=== PATIENT | male | born 1945 | race Two or more races ===

== ENCOUNTER 2020-04-02 14:46 | Inpatient (IN) | payer MEDICARE ==
[~2020-04-02] VITALS: Ht 157.5 cm; Wt 50.3 kg
[2020-04-02] VITALS (8 sets, daily range): BP systolic 136–147; BP diastolic 59–71
[2020-04-02] MEDS ORDERED: IV NS 0.9% 500 ML BAG IV ONE (15:00)
[2020-04-02] MEDS ORDERED: TRAZ-257 PO (15:04)
[2020-04-02] MEDS ORDERED: LOSA50TA39 MT (15:04)
[2020-04-02] MEDS ORDERED: ATOR80TA MT (15:04)
--- NOTE | 2020-04-02 15:11 | NUR ---
BIBPA FROM SNF TO ER BED 5. AAOX2. NOT IN RESP DISTRESS, BREATHING EVEN AND UNLABORED. PT WAS SENT BY PMD FOR ABNORMAL HAG RESULT, REPORTED AT 5.6. MD WAS AT THE BEDSIDE FOR EVAL. PT IS NOTED WITH AN OPEN TRACH STOMA. IV LINE ESTABLSHIED ON RFA 18G. ARRIVED WITH A LINE ON L FA 24G.
[2020-04-02 15:45] LABS: BASOPHILS # (AUTO) 0.1 /CMM (0.0-0.2); BASOPHILS % (AUTO) 0.6 % (0.0-2.0); EOSINOPHILS % (AUTO) 1.3 % (0.0-6.0); HEMATOCRIT 21 % (39-51); LYMPHOCYTES # (AUTO) 1.2 /CMM (0.8-4.8); LYMPHOCYTES % (AUTO) 14.3 % (20.0-44.0); MEAN CORPUSCULAR HGB CONC 29 g/dl (31.0-36.0); MEAN CORPUSCULAR VOLUME 80 fL (80-96); MONOCYTES # (AUTO) 0.5 /CMM (0.1-1.30); MONOCYTES % (AUTO) 6.2 % (2.0-12.0); NEUTROPHILS # (AUTO) 6.8 /CMM (1.8-8.9); NEUTROPHILS % (AUTO) 77.6 % (43.0-81.0); PLATELET COUNT (AUTO) 596 /CMM (150-450); RED BLOOD CELL COUNT(AUTO) 2.62 MIL/uL (4.5-6.0); WHITE BLOOD COUNT (AUTO) 8.7 K/uL (4.3-11.0)
[2020-04-02 15:54] LABS: CALCIUM, SERUM 9.1 mg/dL (8.5-10.1); CARBON DIOXIDE 21 mmol/L (21-32); CHLORIDE 106 mmol/L (98-107); CREATININE 2.4 mg/dL (0.6-1.3); GLUCOSE 87 mg/dL (74-106); HEMOGLOBIN 6.1 g/dL (13.5-17.5); SODIUM SERUM 138 mmol/L (136-145); UREA NITROGEN, BLOOD 29 mg/dL (7-18)
[2020-04-02 15:59] LABS: ALANINE AMINOTRANSFERASE 13 U/L (12-78); ALBUMIN 2.1 g/dL (3.4-5.0); ALKALINE PHOSPHATASE 109 U/L (46-116); ASPARTATE AMINOTRANSFERASE 16 U/L (15-37); BILIRUBIN,TOTAL 0.1 mg/dL (0.2-1.0); LIPASE 67 U/L (73-393); TOTAL PROTEIN, SERUM 7.4 g/dL (6.4-8.2)
--- NOTE | 2020-04-02 16:42 | NUR ---
REPORT GIVEN TO AIDAN CHUN FOR FARRAH
[2020-04-02 16:44] LABS: LYMPHOCYTES % (MANUAL) 15 % (16-48); NEUTROPHILS % (MANUAL) 77 (42-76)
[2020-04-02 16:45] LABS: EOSINOPHILS % (MANUAL) 1 % (0-4); MONOCYTES % (MANUAL) 7 % (0-11.0)
--- NOTE | 2020-04-02 17:00 | NUR ---
LAB AT BEDSIDE FOR BLOOD DRAW FOR 2ND TYPE AND SCREEN. COVID SWAB DONE WELL.
--- NOTE | 2020-04-02 17:28 | NUR ---
PT TRANSPORTED TO UNIT ON [facility] WITH EMT AND RN AT BEDSIDE USING ACLS PROTOCOL. NAD DURING TRANSPORT.
--- NOTE | 2020-04-02 17:48 | NUR ---
patient received from er jairo mcfadden notified about admission and ok to transfuse prbc ordered from er.primary nurse aware.
--- NOTE | 2020-04-02 18:02 | NUR ---
CONSENT OBTAINED FROM [facility] TO GIVE BLOOD .
[2020-04-02] MEDS ORDERED: ACETAMINOPHEN 325 MG TABLET PO PRN (18:30)
[2020-04-02] MEDS ORDERED: ONDANSETRON HCL/PF 4 MG/2 ML VIAL IVP PRN (18:30)
[2020-04-02] MEDS ORDERED: MAGNESIUM HYDROXIDE 30 ML UDC PO PRN (18:30)
[2020-04-02] MEDS ORDERED: HYDROCODONE/APAP 5/325MG 1 EACH TABLET PO PRN (18:30)
[2020-04-02] MEDS ORDERED: Z GUARD REMEDY 2 OZ OINT TP PRN (18:30)
[2020-04-02] MEDS ORDERED: ZOLPIDEM TARTRATE 5 MG TABLET PO PRN (18:30)
--- NOTE | 2020-04-02 19:05 | NUR ---
RN OPENING NOTES RECEIVED PT ON BED ASLEEP EASY TO AROUSE ON RA TOLERATING WELL WITH SPO2 98% NO SIGN AND SYMPTOMS OF DISTRESS, OLD TRACH STOMA STILL OPEN NOTED, CHARGE NURSE MADE AWARE, PT ON TELE MONITOR WITH READING SINUS RHYTHM 80'S, WITH IV #18 ON RHAND WITH ONGOING 1 UNIT PRBC INFUSING WELL NO SIGN AND SYMPTOMS OF ANY TRANSFUSION REACTION, ON DROPLET ISOLATION FOR R/O COVID SAFETY MEASURE MAINTAINED WILL CONT TO MONITOR
--- NOTE | 2020-04-02 19:17 | NUR ---
PROCESS CONTROL MANAGER NOTE: PATIENT ADMITTED FROM ER FOR ANEMIA. ALERT, NON-VERBAL BUT ABLE TO FOLLOW COMMANDS. PATIENT IS SATING 99% ON RA. NO SIGNS OF RESPIRATORY DISTRESS NOTED, NO SIGNS OF ACUTE DISTRESS NOTED. PATIENT HAS OLD TRACH STOMA THAT HAS NOT BEEN CLOSED YET. DNR, COMFORT MEASURES ONLY, NKA PER ER. SR IN THE 80S ON TELE MONITOR. SKIN INTACT. #18 ON RFA AND #24 ON LFA, FLUSHING WELL, C/D/I, NO SIGNS OF COMPLICATIONS NOTED. 1 UNIT PRBC HUNG D/T HGB 6.1, WILL CARRY OVER TO FOLLOWING SHIFT, NO SIGNS OF COMPLICATIONS/ REACTIONS NOTED. VSS. PER ER, MRSA AND COVID TESTING SWAB DONE. ISOLATION PRECAUTIONS FOR R/O COVID. ADMITTING ASSESSMENTS COMPLETE. ENDORSED TO MIKO RN TO F/U WITH DIET, ALLERGIES AND PICTURES IF NEEDED AND TO CONTINUE PLAN OF CARE. SAFETY MEASURES IMPLEMENTED, BED IN LOWEST POSITION, LOCKED, SIDE RAILS UP X2, CALL LIGHT WITHIN REACH.
[2020-04-02] MEDS: ATORVASTATIN 40 MG TABLET PO SCH (21:25)
[2020-04-02] MEDS: TRAZODONE 50 MG TABLET PO SCH (21:25)
--- NOTE | 2020-04-02 21:31 | NUR ---
RN TRANSFUSION NOTES 1 UNIT PRBC TRANSFUSED WITH LATEST V/S TEMP 98.2 RR 20 HR 84 BP 146/66 SPO2 100% NO SIGN AND SYMPTOMS OF ANY TRANSFUSION REACTION, PT IS AWAKE MOUTHING HIS WORDS NO COMPLAINT OF ANY PAIN WILL CONT TO MONITOR
[2020-04-02] MEDS: IV NS 0.9% 1,000 ML IV PRN (21:34)
[2020-04-03] VITALS: BP 152/63
[2020-04-03 00:40] LABS: HEMOGLOBIN 7.8 g/dL (13.5-17.5)
[2020-04-03 04:00] VITALS: BP 150/68
[2020-04-03 06:27] LABS: BASOPHILS # (AUTO) 0.1 /CMM (0.0-0.2); EOSINOPHILS % (AUTO) 1.6 % (0.0-6.0); HEMATOCRIT 26 % (39-51); HEMOGLOBIN 7.8 g/dL (13.5-17.5); LYMPHOCYTES # (AUTO) 1.3 /CMM (0.8-4.8); LYMPHOCYTES % (AUTO) 11.7 % (20.0-44.0); MEAN CORPUSCULAR HGB CONC 30 g/dl (31.0-36.0); MEAN CORPUSCULAR VOLUME 82 fL (80-96); MONOCYTES # (AUTO) 0.5 /CMM (0.1-1.30); MONOCYTES % (AUTO) 4.8 % (2.0-12.0); NEUTROPHILS # (AUTO) 8.9 /CMM (1.8-8.9); NEUTROPHILS % (AUTO) 80.9 % (43.0-81.0); PLATELET COUNT (AUTO) 578 /CMM (150-450); RED BLOOD CELL COUNT(AUTO) 3.12 MIL/uL (4.5-6.0)
--- NOTE | 2020-04-03 06:55 | NUR ---
RN CLOSING NOTES PT ON BED ASLEEP EASY TO AWAKE NO SIGN AND SYMPTOMS OF RESPIRATORY DISTRESS SPO2 >95% NO SIGNIIFACANT CHANGES ON CONDITION NOTED, ALL NEEDS ATTENDED, WILL ENDORSED TO AM SHIFT NURSE
[2020-04-03 07:02] LABS: CALCIUM, SERUM 9.8 mg/dL (8.5-10.1); CARBON DIOXIDE 21 mmol/L (21-32); CHLORIDE 105 mmol/L (98-107); CREATININE 2.3 mg/dL (0.6-1.3); GLUCOSE 83 mg/dL (74-106); MAGNESIUM 1.7 mg/dL (1.8-2.4); PHOSPHORUS 4.7 mg/dL (2.5-4.9); POTASSIUM 3.7 mmol/L (3.5-5.1); SODIUM SERUM 138 mmol/L (136-145); UREA NITROGEN, BLOOD 26 mg/dL (7-18)
[2020-04-03 07:05] LABS: CHOLESTEROL 101 mg/dL (<200); HDL CHOLESTEROL 46 mg/dL (40-60); LDL 45 mg/dL (0-99); TRIGLYCERIDES 96 mg/dL (30-150)
--- NOTE | 2020-04-03 07:15 | NUR ---
MS RN NOTES PATIENT IN BED EYE CLOSED, AWAKEN EASILY, ABLE TO MOUTH WORDS. NO ACUTE DISTRESS NOTED. BREATHING UNLABORED. IV ACCESS PATENT AND INTACT, NO REDNESS NO SWELLING NOTED. SAFETY MEASURES IN PLACE, CALL LIGHT WITHIN EACH WILL CONTINUE TO MONITOR ACCORDINGLY
--- NOTE | 2020-04-03 07:15 | NUR ---
MS RN NOTES PATIENT IN BED ALERT ORIENTED X 3, ABLE TO MOUTH WORDS. NO ACUTE DISTRESS NOTED. BREATHING UNLABORED. IV ACCESS PATENT AND INTACT, NO REDNESS NO SWELLING NOTED. SAFETY MEASURES IN PLACE, CALL LIGHT WITHIN EACH WILL CONTINUE TO MONITOR ACCORDINGLY Addendum: 04/03/20 at 1501 by MADI SIDDIQUI RN DISREGARD ABOVE NOTES, WRONG ENTRY
[2020-04-03 08:00] VITALS: BP 142/73
--- NOTE | 2020-04-03 08:05 | NUR ---
WOUND CARE CONSULT: REVIEWED CHART, NURSING DOCUMENTATION AND PHOTOS WHICH SHOW PRESSURE SORE TO RT SCAPULA AREA AND HEALING TRACH SITE, PRESENT ON ADMISSION. RECOMMEND SURGICAL CONSULT. DR KAISER NOTIFIED OF CONSULT REQUEST. RECOMMENDATIONS MADE FOR SKIN PROTECTION. DISCUSSED WITH NURSING STAFF. PT IS ON DUNIA ISOFLEX LOW AIRLOSS BED. WILL SEE PRSolo LOVELL IN AGREEMENT WITH PLAN OF CARE.
[2020-04-03] MEDS ORDERED: CLON0.5T PO (08:24)
[2020-04-03] MEDS ORDERED: ACET325T53 PO (08:24)
[2020-04-03] MEDS ORDERED: AMLO5TAB4 PO (08:24)
[2020-04-03] MEDS ORDERED: DIPH25CA83 PO (08:24)
[2020-04-03] MEDS ORDERED: QUERCETIN PO (08:24)
[2020-04-03] MEDS ORDERED: ASPI-605 PO (08:24)
[2020-04-03] MEDS ORDERED: GUAI-671 PO (08:24)
[2020-04-03] MEDS ORDERED: CHLO473M2 MM (08:24)
[2020-04-03] MEDS ORDERED: MELA3TAB41 PO (08:24)
[2020-04-03] MEDS ORDERED: BISA10SU11 RC (08:24)
[2020-04-03] MEDS ORDERED: NA P66.6 RC (08:24)
[2020-04-03] MEDS ORDERED: POLY17PO4 PO (08:24)
[2020-04-03] MEDS ORDERED: MAGN400O6 PO (08:24)
[2020-04-03] MEDS ORDERED: TAMS-12 PO (08:24)
[2020-04-03] MEDS ORDERED: IPRA4AER IH ×2 (08:24)
[2020-04-03] MEDS ORDERED: ATOR40TA PO (08:24)
[2020-04-03] MEDS ORDERED: QUET25TA PO (08:24)
[2020-04-03] MEDS ORDERED: EPOE40009 IJ (08:24)
[2020-04-03] MEDS ORDERED: MULT-439 PO (08:24)
[2020-04-03] MEDS ORDERED: PANT40TA4 PO (08:24)
[2020-04-03] MEDS ORDERED: MIRT15TA7 PO (08:24)
[2020-04-03] MEDS ORDERED: ASCO500T10 PO (08:24)
[2020-04-03] MEDS ORDERED: HEPA500014 IJ (08:24)
[2020-04-03] MEDS ORDERED: ACET-2605 PO (08:24)
[2020-04-03] MEDS ORDERED: ZINC1CAP3 PO (08:24)
[2020-04-03] MEDS: LOSARTAN POTASSIUM 50 MG TABLET PO SCH (08:56)
[2020-04-03] MEDS: ASPIRIN 81 MG TAB.CHEW PO SCH (08:56)
--- NOTE | 2020-04-03 09:51 | NUR ---
MS RN NOTES DR LEXIE DELANEY CALLED BACK , KIDNEY ULTRASOUND RESULT RELAYED TO MD WITH NEW ORDERS TO INSERT THOMAS CATHETER ,CLAMP AT 500cc OUTPUT FOR 1 MINUTE AND UNCLAMP, ORDERS CLARIFIED AND READ BACK MD , NOTED AND CARRIED OUT.
--- NOTE | 2020-04-03 10:00 | NUR ---
MS RN NOTES INSERTED THOMAS CATHETER FR 16 ,CLAMPED AT 500CC OUTPUT FOR 1 MINUTE AND UNCLAMPED, WITH LIGHT YELLOW 1550ML URINE OUTPUT. STERILE TECHNIQUE OBSERVED. PATIENT TOLERATED WELL.
[2020-04-03] MEDS: IV NS 0.9% 1,000 ML IV PRN (10:02)
[2020-04-03 10:45] LABS: OCCULT BLOOD STOOL NEGATIVE (NEGATIVE)
[2020-04-03] MEDS ORDERED: Magnesium 1GM/D5W 100ML PREMIX 100 ML IV SCH (11:00)
[2020-04-03 12:00] VITALS: BP 162/95
[2020-04-03 16:00] VITALS: BP 134/77
[2020-04-03] MEDS: AMLODIPINE BESYLATE 5 MG TABLET PO SCH (16:53)
[2020-04-03] MEDS: CHLORHEXIDINE GLUCONATE 15 ML UDC MM SCH (16:53)
[2020-04-03 17:14] LABS: IRON, SERUM 16 ug/dl (50-175); TOTAL IRON BINDING CAPACITY 222 ug/dl (250-450)
[2020-04-03 17:51] LABS: APPEARANCE,URINE CLOUDY (CLEAR); BILIRUBIN,URINE NEGATIVE (NEGATIVE); BLOOD, URINE MODERATE Ery/uL (NEGATIVE); COLOR,URINE ORANGE (YELLOW); KETONES,URINE NEGATIVE (NEGATIVE); LEUKOCYTE ESTERASE ,URINE LARGE (NEGATIVE); NITRITE, URINE POSITIVE (NEGATIVE); PH,URINE 6.5 (5.0-8.0); PROTEIN,URINE NEGATIVE (NEGATIVE); UGLUCOSE NEGATIVE (NEGATIVE); UROBILINOGEN,URINE 0.2 EU/dL (0.2)
[2020-04-03 17:58] LABS: CREATININE, URINE < 13.0 MG/DL (30.0-125.0); URINE SODIUM, RANDOM 87 mmol/l (40-220); URINE TOTAL PROTEIN 24.3 mg/dL (0-11.9)
[2020-04-03 18:02] LABS: BACTERIA,URINE 2+ /HPF (None Seen); RBC,URINE 51-80 /HPF (0-2); SQUAMOUS EPITHELIAL CELL,UR Few /HPF (None Seen); WBC,URINE TOO NUMEROUS TO COUN /HPF (0-3)
[2020-04-03 18:34] LABS: EOSINOPHIL,URINE Rare
--- NOTE | 2020-04-03 18:52 | NUR ---
MS RN NOTES PATIENT IN BED ALERT, ABLE TO MOUTH WORDS. NO ACUTE DISTRESS NOTED. BREATHING UNLABORED. IV ACCESS PATENT AND INTACT, NO REDNESS NO SWELLING NOTED. THOMAS CATHETER INTACT DRAINING PALE YELLOW URINE. WOUND CARE RENDERED. REPOSITIONED EVERY 2 HOURS AND NEEDED. NEEDS ATTENDED AND ANTICIPATED. SAFETY MEASURES IN PLACE. NEEDS ATTENDED AND ANTICIPATED. KEPT CLEAN DRY AND COMFORTABLE. CALL LIGHT WITHIN EACH . WILL ENDORSE TO NIGHT NURSE FOR CONTINUITY OF CARE.
[2020-04-03 20:00] VITALS: BP 151/64
[2020-04-03] MEDS: QUETIAPINE FUMARATE 25 MG TABLET PO SCH (21:05)
[2020-04-03] MEDS: ATORVASTATIN 40 MG TABLET PO SCH (21:05)
[2020-04-03] MEDS: MIRTAZAPINE 15 MG TABLET PO SCH (21:05)
[2020-04-03] MEDS: TRAZODONE 50 MG TABLET PO SCH (21:06)
[2020-04-04] VITALS: BP 152/75
[2020-04-04] MEDS: IV NS 0.9% 1,000 ML IV PRN (00:54)
[2020-04-04 04:00] VITALS: BP_SYST 145; BP_DIAS 82; BP_DIAS 84
[2020-04-04 07:12] LABS: BASOPHILS # (AUTO) 0.1 /CMM (0.0-0.2); BASOPHILS % (AUTO) 0.5 % (0.0-2.0); EOSINOPHILS % (AUTO) 0.8 % (0.0-6.0); HEMATOCRIT 27 % (39-51); LYMPHOCYTES # (AUTO) 0.9 /CMM (0.8-4.8); LYMPHOCYTES % (AUTO) 9.5 % (20.0-44.0); MEAN CORPUSCULAR HGB CONC 30 g/dl (31.0-36.0); MEAN CORPUSCULAR VOLUME 81 fL (80-96); MONOCYTES # (AUTO) 0.5 /CMM (0.1-1.30); MONOCYTES % (AUTO) 5.1 % (2.0-12.0); NEUTROPHILS # (AUTO) 8.3 /CMM (1.8-8.9); NEUTROPHILS % (AUTO) 84.1 % (43.0-81.0); PLATELET COUNT (AUTO) 559 /CMM (150-450); RED BLOOD CELL COUNT(AUTO) 3.28 MIL/uL (4.5-6.0); WHITE BLOOD COUNT (AUTO) 9.9 K/uL (4.3-11.0)
--- NOTE | 2020-04-04 07:20 | NUR ---
RN OPENING NOTES RECEIVED PT ON BED ASLEEP EASY TO AROUSE ON RA TOLERATING WELL WITH SPO2 99% NO SIGN AND SYMPTOMS OF DISTRESS, OLD TRACH STOMA STILL OPEN NOTED, CHARGE NURSE MADE AWARE. PT ON TELE MONITOR WITH READING SINUS RHYTHM 70'S, WITH IV #18 ON RHAND WITH ONGOING 1 UNIT PRBC INFUSING WELL NO SIGN AND SYMPTOMS OF ANY TRANSFUSION REACTION, BED IN LOWEST POSITION AND LOCKED, CALL LIGHT WITHIN EASY REACH. WILL CONTINUE TP MONITOR
[2020-04-04 08:00] VITALS: BP_SYST 141; BP_SYST 152; BP_DIAS 78; BP_DIAS 80
[2020-04-04 08:25] LABS: ALANINE AMINOTRANSFERASE 13 U/L (12-78); ALBUMIN 2.1 g/dL (3.4-5.0); ALKALINE PHOSPHATASE 110 U/L (46-116); ASPARTATE AMINOTRANSFERASE 18 U/L (15-37); BILIRUBIN,TOTAL 0.3 mg/dL (0.2-1.0); CALCIUM, SERUM 9.2 mg/dL (8.5-10.1); CARBON DIOXIDE 21 mmol/L (21-32); CHLORIDE 104 mmol/L (98-107); CREATININE 1.9 mg/dL (0.6-1.3); GLUCOSE 84 mg/dL (74-106); MAGNESIUM 1.8 mg/dL (1.8-2.4); PHOSPHORUS 3.9 mg/dL (2.5-4.9); POTASSIUM 3.4 mmol/L (3.5-5.1); SODIUM SERUM 137 mmol/L (136-145); TOTAL PROTEIN, SERUM 7.8 g/dL (6.4-8.2); UREA NITROGEN, BLOOD 21 mg/dL (7-18)
[2020-04-04 08:36] LABS: CREATINE KINASE, TOTAL 56 U/L (39-308)
[2020-04-04] MEDS ORDERED: ASPIRIN EC 81 MG TABLET.DR PO SCH (09:00)
[2020-04-04] MEDS: CHLORHEXIDINE GLUCONATE 15 ML UDC MM SCH ×2 (09:00→16:55)
[2020-04-04] MEDS: POLYETHYLENE GLYCOL 3350 17 GM POWD.PACK PO SCH (09:00)
[2020-04-04] MEDS: LOSARTAN POTASSIUM 50 MG TABLET PO SCH (09:01)
[2020-04-04] MEDS: TAMSULOSIN 0.4 MG CAP.SR.24H PO SCH (09:02)
[2020-04-04] MEDS: ASCORBIC ACID 500 MG TABLET PO SCH (09:02)
[2020-04-04] MEDS: MULTIVITAMINS,THERAGRAN 1 UDTAB TABLET PO SCH (09:02)
[2020-04-04] MEDS: PANTOPRAZOLE 40 MG TABLET.DR PO SCH (09:02)
[2020-04-04] MEDS: AMLODIPINE BESYLATE 5 MG TABLET PO SCH (09:03)
[2020-04-04] MEDS: ZINC SULFATE 220 MG CAPSULE PO SCH (09:04)
[2020-04-04] MEDS: ASPIRIN 81 MG TAB.CHEW PO SCH (09:04)
[2020-04-04] MEDS: QUETIAPINE FUMARATE 25 MG TABLET PO SCH ×2 (09:04→21:51)
[2020-04-04] MEDS ORDERED: POTASSIUM CHLORIDE 10 MEQ TABLET.SA PO ONE (10:30)
[2020-04-04] MEDS: CEFTRIAXONE 1 G in IV D5W 50 ML IV SCH (11:01)
[2020-04-04 12:00] VITALS: BP 128/68
[2020-04-04 16:00] VITALS: BP 133/68
--- NOTE | 2020-04-04 19:01 | NUR ---
RN CLOSING NOTES WILL ENDORSE PTTO PM NURSE FOR FARRAH. PT ON BED ASLEEP EASY TO AWAKE. NO SIGN AND SYMPTOMS OF RESPIRATORY DISTRESS SPO2 >95% NO SIGNIFICANT CHANGES ON CONDITION NOTED, BED IN LOWEST POSITION, LOCKED AND BEDRAILS X 2. CALL LIGHT WITHIN EASY REACH.
--- NOTE | 2020-04-04 19:50 | NUR ---
RN OPENING NOTE RECEIVED PT IN BED RESTING COMFORTABLY. PATIENT AO x 2-3, NON VERBAL BUT RESPONDS WITH GESTURES, NO S/SX OF ACUTE DISTRESS AT THIS TIME. PATIENT'S BREATHING IS EVEN AND UNLABORED. PATIENT SATURATES 100% ON ROOM AIR. NOTED IV SITE AT RIGHT FOREARM G18 WITH NS 1000ML AT 75 ML/HR, AND LEFT FOREARM G24. BOTH PATENT AND FLUSHING WELL, NO S/S OF INFECTION OR INFILTRATION. SAFETY MEASURES IMPLEMENTED PER PROTOCOL. PATIENT BED ALARM IS ON. HEAD OF BED ELEVATED. BED IS LOCKED, IN LOWEST POSITION AND SIDE RAILS UP. CALL LIGHT WITHIN REACH OF THE PATIENT. WILL CONTINUE TO MONITOR AND REASSESS FOR ANY CHANGES.
[2020-04-04 20:00] VITALS: BP 123/65
[2020-04-04] MEDS: MIRTAZAPINE 15 MG TABLET PO SCH (21:51)
[2020-04-04] MEDS: TRAZODONE 50 MG TABLET PO SCH (21:52)
[2020-04-04] MEDS: ATORVASTATIN 40 MG TABLET PO SCH (21:52)
--- NOTE | 2020-04-04 23:50 | NUR ---
RN NOTE PATIENT ATTEMPTS TO GET OUT OF BED MULTIPLE TIMES DESPITE WEAK EXTREMITIES. GAS ANALYST MADE AWARE. BRANDAN HERNÁNDEZ NOTIFIED. AWAITING MD ORDERS
[2020-04-05] VITALS (7 sets, daily range): BP systolic 112–153; BP diastolic 63–90
--- NOTE | 2020-04-05 07:02 | NUR ---
RN CLOSING NOTE PATIENT REMAINS IN ROOM. NO SIGNS OF RESPIRATORY/ACUTE DISTRESS NOTED. HOWEVER, PATIENT STILL TRIES TO GETUP FROM BED AT TIMES. SAFETY MEASURES IMPLEMENTED, MEDICAL RESTRAINTS IN PLACE. BED IN LOWEST POSITION, LOCKED, SIDE RAILS UP, CALL LIGHT WITHIN REACH. PATIENT REFUSED DRESSING CHANGE OF HEALING TRACHEOSTOMY SITE. ENDORSED TO INCOMING SHIFT RN FOR CONTINUATION OF CARE.
[2020-04-05 07:07] LABS: PTH, INTACT 9 pg/mL (15-65)
[2020-04-05 07:27] LABS: BASOPHILS # (AUTO) 0.1 /CMM (0.0-0.2); BASOPHILS % (AUTO) 0.8 % (0.0-2.0); EOSINOPHILS % (AUTO) 0.8 % (0.0-6.0); HEMATOCRIT 29 % (39-51); HEMOGLOBIN 8.6 g/dL (13.5-17.5); LYMPHOCYTES # (AUTO) 1.2 /CMM (0.8-4.8); LYMPHOCYTES % (AUTO) 9.7 % (20.0-44.0); MEAN CORPUSCULAR HGB CONC 29 g/dl (31.0-36.0); MEAN CORPUSCULAR VOLUME 84 fL (80-96); MONOCYTES # (AUTO) 0.7 /CMM (0.1-1.30); MONOCYTES % (AUTO) 5.7 % (2.0-12.0); NEUTROPHILS # (AUTO) 10.3 /CMM (1.8-8.9); PLATELET COUNT (AUTO) 584 /CMM (150-450); RED BLOOD CELL COUNT(AUTO) 3.48 MIL/uL (4.5-6.0); WHITE BLOOD COUNT (AUTO) 12.4 K/uL (4.3-11.0)
--- NOTE | 2020-04-05 07:30 | NUR ---
RECEIVED PATIENT IN BED. NO ACUTE DISTRESS NOTED. ALERT & ORIENTED X2-3 WITH CONFUSION. PATIENT ON ROOM AIR, SATURATING WELL AT 99%. PATIENT HAS BILATERAL WRIST RESTRAINTS, SAFETY MAINTAINED, NO ACUTE DISTRESS NOTED, WILL MONITOR CLOSELY. THOMAS CATHETER IN PLACEPATIENT RIGHT FOREARM IV ACCESS INTACT, PATENT, FLUSHED WELL. SAFETY MAINTAINED. CALL LIGHT WITHIN REACH. WILL CONTINUE TO MONITOR.
[2020-04-05 07:52] LABS: THYROID STIMULATING HORMONE 6.84 uIU/mL (0.358-3.74)
--- NOTE | 2020-04-05 08:11 | NUR ---
Spoke with Charge Nurse. Waiting to hear back if ordering Doctor wants contrast for CT NECK, CHEST, ABDOMEN, and PELVIS. Please be aware that creatnine level is 1.9. Please call Radiology at extension [phone] when ready for exam.
[2020-04-05] MEDS: CHLORHEXIDINE GLUCONATE 15 ML UDC MM SCH ×2 (08:12→17:20)
[2020-04-05] MEDS: ZINC SULFATE 220 MG CAPSULE PO SCH (08:13)
[2020-04-05] MEDS: PANTOPRAZOLE 40 MG TABLET.DR PO SCH (08:13)
[2020-04-05] MEDS: ASCORBIC ACID 500 MG TABLET PO SCH (08:13)
[2020-04-05] MEDS: ASPIRIN 81 MG TAB.CHEW PO SCH (08:13)
[2020-04-05] MEDS: QUETIAPINE FUMARATE 25 MG TABLET PO SCH ×2 (08:13→21:50)
[2020-04-05] MEDS: LOSARTAN POTASSIUM 50 MG TABLET PO SCH (08:13)
[2020-04-05] MEDS: MULTIVITAMINS,THERAGRAN 1 UDTAB TABLET PO SCH (08:13)
[2020-04-05] MEDS: POLYETHYLENE GLYCOL 3350 17 GM POWD.PACK PO SCH (08:14)
[2020-04-05] MEDS: TAMSULOSIN 0.4 MG CAP.SR.24H PO SCH (08:14)
[2020-04-05] MEDS: AMLODIPINE BESYLATE 5 MG TABLET PO SCH (08:14)
[2020-04-05] MEDS: CEFTRIAXONE 1 G in IV D5W 50 ML IV SCH (10:21)
[2020-04-05 11:07] LABS: *SPE A/G RATIO 0.5 (0.7-1.7); *SPE ALBUMIN 2.3 g/dL (2.9-4.4); *SPE ALPHA-1-GLOBULIN 0.4 g/dL (0.0-0.4); *SPE ALPHA-2-GLOBULIN 0.9 g/dL (0.4-1.0); *SPE BETA GLOBULIN 1.2 g/dL (0.7-1.3); *SPE GLOBULIN, TOTAL 4.4 g/dL (2.2-3.9); *SPE M-SPIKE Not Observed g/dL (Not Observed); *SPEGAMMA GLOBULIN 1.9 g/dL (0.4-1.8)
[2020-04-05 11:47] LABS: CALCIUM, SERUM 7.5 mg/dL (8.5-10.1); CARBON DIOXIDE 22 mmol/L (21-32); CHLORIDE 95 mmol/L (98-107); CREATININE 1.8 mg/dL (0.6-1.3); SODIUM SERUM 131 mmol/L (136-145); UREA NITROGEN, BLOOD 16 mg/dL (7-18)
[2020-04-05 11:50] LABS: GLUCOSE 395 mg/dL (74-106); POTASSIUM 2.8 mmol/L (3.5-5.1)
--- NOTE | 2020-04-05 11:55 | NUR ---
ENDORSED PLAN OF CARE TO AIDAN RICHARDS FOR CONTINUITY OF CARE. PATIENT IN STABLE CONDITION, NO ACUTE DISTRESS NOTED. PATIENT SAFETY MAINTAINED. CALL LIGHT WITHIN REACH.
--- NOTE | 2020-04-05 11:56 | NUR ---
MS RN OPENING NOTES Received Patient resting in bed. A/O x 2, with episodes of confusion. VS stable with no acute distress. Breathing even and unlabored on room air with no respiratory distress. Denies pain. No signs and symptoms of pain. Israel Cath in place and patent. 24g PIV on LFA clean, intact, patent and flushing well. 18g PIV on RFA clean, intact, patent and flushing well with NS infusing at 75ml/hr. Bilateral soft wrist restraints in place with warm, intact skin. Safety precautions in place. Bed locked and set to lowest position with side rails x 2 up. All needs rendered at this time. Call light within reach. Will continue to monitor.
[2020-04-05] MEDS ORDERED: POTASSIUM CHLORIDE 10 MEQ TABLET.SA PO ONE (13:30)
[2020-04-05] MEDS: IV NS 0.9% 1,000 ML IV PRN (17:27)
--- NOTE | 2020-04-05 18:18 | NUR ---
MS RN CLOSING NOTES Received Patient resting in bed. A/O x 2, with episodes of confusion, [place] Islander speaking. VS stable with no acute distress. Breathing even and unlabored on room air with no respiratory distress. Denies pain. No signs and symptoms of pain. Israel Cath in place and patent. 24g PIV on LFA clean, intact, patent and flushing well. 18g PIV on RFA clean, intact, patent and flushing well with NS infusing at 75ml/hr. Bilateral soft wrist restraints in place with warm, intact skin. Safety precautions in place. Bed locked and set to lowest position with side rails x 2 up. All needs rendered at this time. Call light within reach. Will endorse plan of care to oncoming shift.
--- NOTE | 2020-04-05 20:56 | NUR ---
LONA/RN ON INITIAL ROUNDING AT 1930, RECEIVED PATIENT AWAKE, CONFUSED, RESTLESS, BILATERAL SOFT WRIST RESTRAINT NOTED, F/C DRAINING TO GRAVITY, FALL PRECAUTIONS PER PROTOCOL, WILL MONITOR.
[2020-04-05] MEDS: TRAZODONE 50 MG TABLET PO SCH (21:47)
[2020-04-05] MEDS: MIRTAZAPINE 15 MG TABLET PO SCH (21:48)
[2020-04-05] MEDS: ATORVASTATIN 40 MG TABLET PO SCH (21:48)
--- NOTE | 2020-04-05 23:07 | NUR ---
LONA/RN PATIENT IS SLEEPING AT THIS TIME, APPEAR COMFORTABLE, NO SIGNS OF DISTRESS NOTED, CALL LIGHT IN REACH, WILL CONTINUE TO MONITOR.
[2020-04-06 04:00] VITALS: BP 137/66
--- NOTE | 2020-04-06 06:05 | NUR ---
LONA/RN PATIENT IS STILL SLEEPING AT THIS TIME, APPEAR COMFORTABLE, NO SIGNS OF DISTRESS NOTED, CALL LIGHT IN REACH, ALL NEEDS ATTENDED AT THIS TIME, WILL CONTINUE TO MONITOR.
[2020-04-06] MEDS: IV NS 0.9% 1,000 ML IV PRN (06:56)
--- NOTE | 2020-04-06 07:17 | NUR ---
rn notes patient received on room air, no sob noted, a/o x1 and shows no s/s of pain at this time. NS @ 75 ml per hour running. Bed at the lowest setting, call light within reach, side rails up x2.
[2020-04-06 07:26] LABS: BASOPHILS # (AUTO) 0.1 /CMM (0.0-0.2); BASOPHILS % (AUTO) 0.8 % (0.0-2.0); EOSINOPHILS % (AUTO) 1.1 % (0.0-6.0); HEMATOCRIT 29 % (39-51); HEMOGLOBIN 8.5 g/dL (13.5-17.5); LYMPHOCYTES # (AUTO) 1.3 /CMM (0.8-4.8); MEAN CORPUSCULAR HGB CONC 29 g/dl (31.0-36.0); MEAN CORPUSCULAR VOLUME 82 fL (80-96); MONOCYTES # (AUTO) 0.6 /CMM (0.1-1.30); MONOCYTES % (AUTO) 6.9 % (2.0-12.0); NEUTROPHILS # (AUTO) 7.1 /CMM (1.8-8.9); NEUTROPHILS % (AUTO) 77.2 % (43.0-81.0); PLATELET COUNT (AUTO) 531 /CMM (150-450); RED BLOOD CELL COUNT(AUTO) 3.55 MIL/uL (4.5-6.0); WHITE BLOOD COUNT (AUTO) 9.2 K/uL (4.3-11.0)
[2020-04-06 07:55] LABS: CALCIUM, SERUM 9.3 mg/dL (8.5-10.1); CARBON DIOXIDE 22 mmol/L (21-32); CHLORIDE 102 mmol/L (98-107); CREATININE 1.6 mg/dL (0.6-1.3); GLUCOSE 74 mg/dL (74-106); MAGNESIUM 1.6 mg/dL (1.8-2.4); PHOSPHORUS 3.9 mg/dL (2.5-4.9); POTASSIUM 3.4 mmol/L (3.5-5.1); SODIUM SERUM 136 mmol/L (136-145); UREA NITROGEN, BLOOD 15 mg/dL (7-18)
[2020-04-06 08:00] VITALS: BP 145/70
[2020-04-06] MEDS: CHLORHEXIDINE GLUCONATE 15 ML UDC MM SCH ×2 (08:15→16:07)
[2020-04-06] MEDS: ZINC SULFATE 220 MG CAPSULE PO SCH (08:15)
[2020-04-06] MEDS: LOSARTAN POTASSIUM 50 MG TABLET PO SCH (08:16)
[2020-04-06] MEDS: MULTIVITAMINS,THERAGRAN 1 UDTAB TABLET PO SCH (08:16)
[2020-04-06] MEDS: ASCORBIC ACID 500 MG TABLET PO SCH (08:16)
[2020-04-06] MEDS: TAMSULOSIN 0.4 MG CAP.SR.24H PO SCH (08:16)
[2020-04-06] MEDS: AMLODIPINE BESYLATE 5 MG TABLET PO SCH (08:16)
[2020-04-06] MEDS: ASPIRIN 81 MG TAB.CHEW PO SCH (08:17)
[2020-04-06] MEDS: PANTOPRAZOLE 40 MG TABLET.DR PO SCH (08:17)
[2020-04-06] MEDS: QUETIAPINE FUMARATE 25 MG TABLET PO SCH ×2 (08:17→21:06)
[2020-04-06] MEDS: POLYETHYLENE GLYCOL 3350 17 GM POWD.PACK PO SCH (08:17)
[2020-04-06] MEDS ORDERED: Magnesium 1GM/D5W 100ML PREMIX 100 ML IV SCH (09:55)
[2020-04-06] MEDS ORDERED: POTASSIUM CHLORIDE 10 MEQ TABLET.SA PO ONE (11:00)
[2020-04-06] MEDS: CEFTRIAXONE 1 G in IV D5W 50 ML IV SCH (11:43)
[2020-04-06 12:00] VITALS: BP 122/62
[2020-04-06] MEDS: MEROPENEM 500 MG in IV NS 0.9% 50 ML IV SCH ×2 (13:57→21:06)
[2020-04-06] MEDS: SOD FERRIC GLUC 125 MG in IV NS 0.9% 100 ML IV SCH (14:25)
[2020-04-06 16:00] VITALS: BP 147/74
--- NOTE | 2020-04-06 16:52 | NUR ---
rn notes patient remains on room air, no sob noted, a/o x0 and is confused. Israel cath due to Hydronephrosis. R AC with NS @ 75 ml per hour running. Patient does not have a good appetite, and does not seem to want to eat anything at this time. SHREDDER/GRANULATOR OPERATOR aware. Plan is to have patient dc to SNF/Hospice. Transfer out when covid result is negative. Pending urology eval for renal mass seen on CT. Bed at the lowest setting, call light within reach, side rails up x2.
--- NOTE | 2020-04-06 19:48 | NUR ---
RN NOTES RECEIVED PATIENT ON BED AWAKE, ALERT, ORIENTED X 0, CONFUSED, COMFORTABLE, NO C/O PAIN, NO SIGNS OF ACUTE DISTRESS NOTED, SAFETY MEASURES IN PLACE, IV ACCESS INTACT AND PATENT, BILATERAL SOFT WRIST RESTRAINTS IN PLACED, THOMAS CATHETER INTACT, PATENT AND DRAINING TO A YELLOW URINE OUTPUT, NO SEDIMENTS NOTED. CALL LIGHT WITH IN EASY REACH, FALL PRECAUTION PER PROTOCOL EMPHASIZE. BED IN LOW LOCKED POSITION, ASPIRATION PRECAUTION MAINTAINED. WILL D/C TO SNF / HOSPICE ONCE COVID RESULT IS NEGATIVE. WILL CONTINUE TO MONITOR ACCORDINGLY.
[2020-04-06 20:35] VITALS: BP 139/65
[2020-04-06] MEDS: ATORVASTATIN 40 MG TABLET PO SCH (22:12)
[2020-04-06] MEDS: TRAZODONE 50 MG TABLET PO SCH (22:12)
[2020-04-06] MEDS: MIRTAZAPINE 15 MG TABLET PO SCH (22:12)
[2020-04-07] MEDS: IV NS 0.9% 1,000 ML IV PRN (00:11)
--- NOTE | 2020-04-07 06:09 | NUR ---
RN NOTES ALL NEEDS ATTENDED AND MET, ABLE TO REST AND SLEPT AT INTERVALS. PATIENT AWAKE, ALERT, ORIENTED X 0, CONFUSED, AT THIS TIME. KEEP COMFORTABLE, NO FACIAL GRIMACE, NO C/O PAIN, NO SIGNS OF ACUTE DISTRESS NOTED, SAFETY MEASURES IN PLACE, IV ACCESS INTACT AND PATENT, BILATERAL SOFT WRIST RESTRAINTS IN PLACED, THOMAS CATHETER INTACT, PATENT AND DRAINING TO A YELLOW URINE OUTPUT, NO SEDIMENTS NOTED. CALL LIGHT WITH IN EASY REACH, FALL PRECAUTION PER PROTOCOL EMPHASIZE. BED IN LOW LOCKED POSITION, ASPIRATION PRECAUTION MAINTAINED. WILL D/C TO SNF / HOSPICE ONCE COVID RESULT IS NEGATIVE. WILL ENDORSE TO AM NURSE FOR CONTINUITY OF CARE.
[2020-04-07 06:54] LABS: CALCIUM, SERUM 9.3 mg/dL (8.5-10.1); CARBON DIOXIDE 20 mmol/L (21-32); CHLORIDE 103 mmol/L (98-107); CREATININE 1.4 mg/dL (0.6-1.3); GLUCOSE 61 mg/dL (74-106); MAGNESIUM 1.9 mg/dL (1.8-2.4); POTASSIUM 3.1 mmol/L (3.5-5.1); SODIUM SERUM 138 mmol/L (136-145); UREA NITROGEN, BLOOD 12 mg/dL (7-18)
--- NOTE | 2020-04-07 07:45 | NUR ---
RN OPENING NOTE Patient is resting in bed, A/O x1, showing no signs of acute distress or SOB, stable on RA. Patient has no complaints of pain at this time. Bilateral soft wrist restraints in place, circulation checked, patient turned and repositioned. IV line is clean and intact running NS @ 75mls/hr. Israel catheter in place. Bed is in lowest position, side rails x3 in upright position, call light is within reach, fall safety and aspiration precautions enforced. Will continue with plan of care.
[2020-04-07 08:00] VITALS: BP 144/70
[2020-04-07] MEDS: CHLORHEXIDINE GLUCONATE 15 ML UDC MM SCH ×2 (08:33→17:44)
[2020-04-07] MEDS: TAMSULOSIN 0.4 MG CAP.SR.24H PO SCH (08:33)
[2020-04-07] MEDS: POLYETHYLENE GLYCOL 3350 17 GM POWD.PACK PO SCH (08:33)
[2020-04-07] MEDS: PANTOPRAZOLE 40 MG TABLET.DR PO SCH (08:33)
[2020-04-07] MEDS: MULTIVITAMINS,THERAGRAN 1 UDTAB TABLET PO SCH (08:33)
[2020-04-07] MEDS: ZINC SULFATE 220 MG CAPSULE PO SCH (08:33)
[2020-04-07] MEDS: ASCORBIC ACID 500 MG TABLET PO SCH (08:34)
[2020-04-07] MEDS: QUETIAPINE FUMARATE 25 MG TABLET PO SCH ×2 (08:34→21:20)
[2020-04-07] MEDS: AMLODIPINE BESYLATE 5 MG TABLET PO SCH (08:34)
[2020-04-07] MEDS: LOSARTAN POTASSIUM 50 MG TABLET PO SCH (08:34)
[2020-04-07] MEDS: ASPIRIN 81 MG TAB.CHEW PO SCH (08:34)
[2020-04-07] MEDS: MEROPENEM 500 MG in IV NS 0.9% 50 ML IV SCH ×2 (08:42→20:31)
--- NOTE | 2020-04-07 10:00 | NUR ---
RN NOTE 3 RNs at bedside, patient is kicking, scratching and combative while cleaning patient, patient refuses to have wound dressing assessed and changed. Bilateral soft wrist restraints applied, circulation checked, patient turned and repositioned.
[2020-04-07] MEDS: POTASSIUM CHLORIDE 20 MEQ TAB.PRT.SR PO SCH ×2 (10:30→10:31)
[2020-04-07] MEDS: POTASSIUM CL. PREMIX PERIPHER. 50 ML IV SCH ×2 (11:34→12:49)
[2020-04-07 12:00] VITALS: BP 118/63
[2020-04-07] MEDS ORDERED: IV D5/ 0.9% NACL 1,000 ML IV PRN (12:00)
[2020-04-07] MEDS: SOD FERRIC GLUC 125 MG in IV NS 0.9% 100 ML IV SCH (13:34)
[2020-04-07 16:00] VITALS: BP 128/67
--- NOTE | 2020-04-07 18:40 | NUR ---
RN CLOSING NOTE Patient is resting in bed, A/O x1, showing no signs of acute distress or SOB, stable on RA. Bilateral soft wrist restraints in place, circulation checked, patient turned and repositioned throughout shift. IV line is clean and intact running NS @ 75mls/hr. Israel catheter in place output 1000cc. Patient refused to have dressing changed, patient is combative, scratching and kicking. All patient needs met, all due medications given, patient kept clean and dry throughout shift. Bed is in lowest position, side rails x3 in upright position, call light is within reach, fall safety and aspiration precautions enforced. Will endorse to movie theater manager for FARRAH. Addendum: 04/07/20 at 1845 by CY TINOCO RN ISOLATION PRECAUTIONS, COVID RESULTS PENDING.
--- NOTE | 2020-04-07 19:15 | NUR ---
RN OPENING NOTE RECEIVED A PATIENT IN BED RESTING,ALERT ORIENTED X0 CONFUSED,BREATHING IS EVEN AND UNLABORED NO SOB NOT ACUTE DISTRESS NOTED,ON ROOM AIR 99% R/O FOR COVID ON 04/02 STILL PENDING.HAS DTI ON RIGHT SCAPULAR,NORMAL SALINE IV RUNNING ON 75CC/HR,IV SITE IS PERIPHERAL ON LEFT FOREARM 24 G INTACT CONTINUE TO MONITOR.
[2020-04-07 20:00] VITALS: BP 141/80
[2020-04-07] MEDS: TRAZODONE 50 MG TABLET PO SCH (21:30)
[2020-04-07] MEDS: ATORVASTATIN 40 MG TABLET PO SCH (21:31)
[2020-04-07] MEDS: MIRTAZAPINE 15 MG TABLET PO SCH (21:32)
[2020-04-08 04:00] VITALS: BP 141/68
--- NOTE | 2020-04-08 06:25 | NUR ---
RN NOTE PATIENT HAS OLD TRACH SITE,HE REFUSED TO CHANGE DRESSING FOR THAT ALSO REFUSED TO TAKE PICTURE OF OLD TRACH SITE.
[2020-04-08 06:35] LABS: CALCIUM, SERUM 9.5 mg/dL (8.5-10.1); CARBON DIOXIDE 24 mmol/L (21-32); CHLORIDE 102 mmol/L (98-107); CREATININE 1.4 mg/dL (0.6-1.3); GLUCOSE 106 mg/dL (74-106); POTASSIUM 3.1 mmol/L (3.5-5.1); SODIUM SERUM 137 mmol/L (136-145); UREA NITROGEN, BLOOD 10 mg/dL (7-18)
--- NOTE | 2020-04-08 07:08 | NUR ---
RN CLOSING NOTE PATIENT IS RESTING IN BED ALERT ORIENTED X0 CONFUSED NON VERBAL, HAS OLD TRACH SITE,BREATHING IS EVEN AND UNLABORED NO SOB NOT ACUTE DISTRESS NOTED,THOMAS IS RUNNING DRAINING JAIME CLEAR URINE IV SITE IS ON LEFT FOREARM INTACT IV HYDRATION D5NS RUNNING 75 CC/HR ALL DUE MEDS GIVEN MD ORDERED KEPT CLEAN AND DRY ALL THE TIME,ALL NEEDS ATTENDED,ENDORSED NEXT COMING SHIFT FOR CONTINUATION OF CARE.
--- NOTE | 2020-04-08 07:30 | NUR ---
RECEIVED PATIENT IN BED. NO ACUTE DISTRESS NOTED. PATIENT ALERT & ORIENTED X0-1, WITH CONFUSION, PATIENT NONVERBAL. PATIENT ON ROOM AIR, SATURATING WELL AT 97%. PATIENT HAS BILATERAL SOFT WRIST RESTRAINTS IN PLACE, NO ACUTE DISTRESS NOTED, BREATHING UNLABORED, SATURATING WELL AT 97%. PATIENT RIGHT FOREARM IV ACCESS INTACT, PATENT, FLUSHED WELL. THOMAS CATHETER IN PLACE, INTACT, PATENT, DRAINING TO GRAVITY. PATIENT SAFETY MAINTAINED. CALL LIGHT WITHIN REACH. WILL CONTINUE TO MONITOR.
[2020-04-08 08:00] VITALS: BP 134/69
[2020-04-08] MEDS: ASPIRIN 81 MG TAB.CHEW PO SCH (09:00)
[2020-04-08] MEDS: QUETIAPINE FUMARATE 25 MG TABLET PO SCH (09:00)
[2020-04-08] MEDS: POLYETHYLENE GLYCOL 3350 17 GM POWD.PACK PO SCH (09:00)
[2020-04-08] MEDS: PANTOPRAZOLE 40 MG TABLET.DR PO SCH (09:00)
[2020-04-08] MEDS: ZINC SULFATE 220 MG CAPSULE PO SCH (09:00)
[2020-04-08] MEDS: MULTIVITAMINS,THERAGRAN 1 UDTAB TABLET PO SCH (09:00)
[2020-04-08] MEDS: LOSARTAN POTASSIUM 50 MG TABLET PO SCH (09:00)
[2020-04-08] MEDS: CHLORHEXIDINE GLUCONATE 15 ML UDC MM SCH (09:00)
[2020-04-08] MEDS: AMLODIPINE BESYLATE 5 MG TABLET PO SCH (09:00)
[2020-04-08] MEDS: ASCORBIC ACID 500 MG TABLET PO SCH (09:00)
[2020-04-08] MEDS: TAMSULOSIN 0.4 MG CAP.SR.24H PO SCH (09:00)
[2020-04-08] MEDS ORDERED: MERO500V21 IV (09:26)
[2020-04-08] MEDS ORDERED: LOSA50TA3 PO (09:26)
[2020-04-08] MEDS: POTASSIUM CHLORIDE 20 MEQ TAB.PRT.SR PO SCH ×2 (09:30→10:30)
[2020-04-08] MEDS: MEROPENEM 500 MG in IV NS 0.9% 50 ML IV SCH (09:37)
--- NOTE | 2020-04-08 09:58 | NUR ---
ATTEMPTED TO ADMINISTER PO MEDS ORDERED. TEMPORARILY TOOK OFF RESTRAINTS, SAT PATIENT UP, AND EXPLAINED MEDICATIONS. PATIENT WAS UNCOOPERATIVE, GOT COMBATIVE WITH ME AND THE ALLERGIST/IMMUNOLOGIST PHYSICIANVIVIANA. PATIENT REFUSED PO MEDS AT THIS TIME. DOCUMENTED AND WILL TRY AGAIN LATER. RESTRAINTS PUT BACK ON. SAFETY MAINTAINED. NO ACUTE DISTRESS NOTED.
[2020-04-08] MEDS: SOD FERRIC GLUC 125 MG in IV NS 0.9% 100 ML IV SCH (14:55)
--- NOTE | 2020-04-08 15:00 | NUR ---
PATIENT TO BE DISCHARGED TO [facility]. CALLED AND REPORT GIVEN TO CHARANJIT TO ENDORSE CONTINUITY OF CARE.
[2020-04-08 16:00] VITALS: BP 141/56
--- NOTE | 2020-04-08 16:07 | NUR ---
COMPUTER AIDED DESIGN TECHNICIAN NOTE: PATIENT DISCHARGED IN STABLE CONDITION AND ACCOMPANIED BY 2 SENIOR PUBLICATIONS SPECIALIST.
== END 2020-04-08 16:07 | DRG 811 ==
LOC: ER 14:52 → TELE1 16:27 → MEDSG1 04-03 01:03 → TELE1 04-03 19:05 → MEDSG1 04-03 19:08
PROVIDERS: ADMIT Nurse Practitioner Acute Care; ATTEND Nurse Practitioner Acute Care
PROC: 30233N1 Transfusion of Nonautologous Red Blood Cells into Peripheral Vein, Percutaneous Approach (ICD-10-PCS; principal; 2020-04-02)
DX: D50.9 Iron deficiency anemia, unspecified (principal); N17.0 Acute kidney failure with tubular necrosis; R53.2 Functional quadriplegia; G93.41 Metabolic encephalopathy; E44.0 Moderate protein-calorie malnutrition; I69.354 Hemiplegia and hemiparesis following cerebral infarction affecting left non-dominant side; N13.30 Unspecified hydronephrosis; D68.59 Other primary thrombophilia; N39.0 Urinary tract infection, site not specified; I10 Essential (primary) hypertension; B96.20 Unspecified Escherichia coli [E. coli] as the cause of diseases classified elsewhere; D63.0 Anemia in neoplastic disease; N40.0 Benign prostatic hyperplasia without lower urinary tract symptoms; E78.5 Hyperlipidemia, unspecified; Z79.899 Other long term (current) drug therapy; F20.9 Schizophrenia, unspecified; F32.9 Major depressive disorder, single episode, unspecified; I12.9 Hypertensive chronic kidney disease with stage 1 through stage 4 chronic kidney disease, or unspecified chronic kidney disease; N18.9 Chronic kidney disease, unspecified; Z79.82 Long term (current) use of aspirin; L89.119 Pressure ulcer of right upper back, unspecified stage; T44.5X5A Adverse effect of predominantly beta-adrenoreceptor agonists, initial encounter; Y92.9 Unspecified place or not applicable; N28.89 Other specified disorders of kidney and ureter; F10.11 Alcohol abuse, in remission; Y90.9 Presence of alcohol in blood, level not specified; I70.8 Atherosclerosis of other arteries; R91.8 Other nonspecific abnormal finding of lung field; M79.9 Soft tissue disorder, unspecified; Z85.21 Personal history of malignant neoplasm of larynx
CPT/HCPCS: 36415; 70490-TC; 71045-TC; 71250-TC; 76536-TC; 76770-TC; 80048-TC; 80053-TC; 80061-TC; 80076-TC; 81000-TC; 82272-TC; 82550-TC; 82570-TC; 82728-TC; 82962-TC; 83540-TC; 83690-TC; 83735-TC; 83970; 84100-TC; 84155; 84155-TC; 84165; 84300-TC; 84439-TC; 84443-TC; 84484-TC; 85025-TC; 85027-TC; 85730-TC; 86850-TC; 86921-TC; 87081-TC; 87086-TC; 87186-TC; A4216; G0378; J0696; J2185; J2916; J3475; J3480; J7030; J7040; J7042; J7050; J7060; P9016-BL; U0003-CS